=== PATIENT | male | born 1975 | race Caucasian/White ===

== ENCOUNTER → 2024-10-07 | Outpatient (CLI) | payer OTHER, SELFPAY ==
--- NOTE | 2024-10-07 11:00 | XR_ITS ---
Examination: CT soft tissue neck, with intravenous contrast. 2-D coronal reconstructions. 2-D sagittal reconstructions. Date and time of exam :October 07, 2024 1110 hours INDICATIONS: Bilateral palpable neck lump noticed beginning 2 months ago. CTDI: vol (mGy):12.2 DLP: (mGycm):360 Technique: 1.25 mm axial sections of the neck of the obtained. Coronal and sagittal reconstructions have been obtained. Intravenous contrast administered 50 cc Isovue-370. Low dose protocols were performed. One or more of the following dose reduction techniques were used; automated exposure control, adjustment of the mA and/or KV according to patient size, use of iterative reconstruction technique. Findings: Symmetrical optic globes Symmetrical nasopharynx oropharynx No parotid gland or submandibular gland edema Marked thyromegaly with longitudinal measurement right thyroid gland 8.8 cm left thyroid gland 7.0 cm mildly impinging upon the trachea Normal epiglottis Satisfactory alignment cervical vertebral bodies IMPRESSION: Marked thyromegaly Consider correlation with oral I-123 thyroid uptake and scan
== END | disposition home or self-care (01) ==
PROVIDERS: PCP Physician Assistant Surgical; Referring Provider Physician Assistant Surgical; Visit Provider Physician Assistant Surgical
DX: E01.0 Iodine-deficiency related diffuse (endemic) goiter (principal)
CPT/HCPCS: 70491; A4649; Q9967

== ENCOUNTER → 2025-07-08 | Outpatient (CLI) | payer OTHER, SELFPAY ==
--- NOTE | 2025-07-08 10:15 | XR_ITS ---
Examination: MRI of brain without intravenous contrast. MRI brain with intravenous contrast. Date and time of exam:July 08, 2025, 1133 hours INDICATIONS: Bilateral sensorineural pulmonary hearing loss ringing in ears 3 years with dizziness Technique: Multiple axial and sagittal images of the brain to been obtained. Siemens high-resolution 1.52 Aracelis short bore scanner utilized. Sagittal sections, T1 weighted images, TR 500, TE 14, are performed. Axial sections proton-density and T2-weighted images have been obtained. Inversion recovery axial images, TR 9260, TE 111, TR 2500. Diffusion weighted images, axial sections, TR 4800, TE 128, B value 1000. Axial sections, ADC map, TR 4800, TE 128. Axial and coronal images were also obtained post 20 cc gadolinium administered intravenously. Findings:: Enlargement of the sella turcica is not present. The optic chiasm and infundibular stalk are not remarkable. There is no localized enlargement of the medulla or yohana. Fourth ventricle and cerebellar tonsils appear normal in position. No subacute area of hemorrhage density is seen. Fourth ventricle is midline. Mass in the cerebellopontine angle region is not evident. 7th and 8th nerve complexes exhibit symmetry Globes are symmetrical Orbital musculature including medial lateral rectus muscles do not exhibit abnormality Increased white matter signal is not seen Effacement of the cortical sulcal markings is not identified. Mass effect upon the ventricular system is not identified. Diffusion-weighted images demonstrate no focus of restricted diffusion Contrast images demonstrate enhancing lesions in the right parietal bone 13 mm and left frontal bone 9 mm axial image 24 Impression: Negative for acute hemorrhage mass effect or midline shift No acute infarct No MR findings diagnostic for demyelinating disease Enhancing lesions in the right parietal bone and left frontal bone as above, recommend whole body bone scan follow-up
== END | disposition home or self-care (01) ==
LOC: SMRI 09:39
PROVIDERS: Referring Provider Physician Assistant Surgical; Visit Provider Physician Assistant Surgical
DX: Q75.8 Other specified congenital malformations of skull and face bones (principal)
CPT/HCPCS: 70553; A9577